=== PATIENT | male | born 1990 | race Caucasian/White ===

== ENCOUNTER 2017-01-03 02:18 | Emergency (ER) | payer SELFPAY ==
[~2017-01-03] VITALS: Ht 170.2 cm; Wt 90.7 kg
[2017-01-03 02:50] VITALS: BP 135/66
[2017-01-03] MEDS ORDERED: IBUPROFEN 800 MG TABLET. PO ONE (03:15)
--- NOTE | 2017-01-03 03:18 | PHYS DOC ---
Adult General Chief Complaint Chief Complaint: ANKLE PROBLEM HPI HPI 26-year-old male with no prior injury to the right ankle now presents the emergency department complaining of persistent pain and swelling after a traumatic inversion injury earlier tonight. 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 It's been swollen and sore since. Range of motion limited by pain. Patient is able to bear weight however it's uncomfortable. Denies any injury or hip pain. No other complaints. no bone or bleeding problems no history of coagulopathy Review of Systems Review of Systems Constitutional: Denies fever or chills [] Eyes: Denies change in visual acuity, redness, or eye pain [] HENT: Denies nasal congestion or sore throat [] Respiratory: Denies cough or shortness of breath [] Cardiovascular: No additional information not addressed in HPI [] GI: Denies abdominal pain, nausea, vomiting, bloody stools or diarrhea [] : Denies dysuria or hematuria [] Musculoskeletal: Denies back pain or joint pain [] Integument: Denies rash or skin lesions [] Neurologic: Denies headache, focal weakness or sensory changes [] Endocrine: Denies polyuria or polydipsia [] Current Medications Current Medications Current Medications Medications (Trade) Dose Ordered Sig/Marisela Start Time Stop Time Status Last Admin Dose Admin Acetaminophen/ Hydrocodone Bitart (Lortab 5/325) 1 tab 1X ONCE 01/03/17 03:30 01/03/17 03:31 DC Ibuprofen (Motrin) 800 mg 1X ONCE 01/03/17 03:15 01/03/17 03:16 UNV Allergies Allergies Allergies Coded Allergies Type Severity Reaction Last Updated Verified NSAIDS (Non-Steroidal Anti-Inflamma Allergy Unknown "skin blotches and i swell up" 01/03/17 Yes Physical Exam Physical Exam Well-appearing male no acute distress soft tissue swelling right ankle with tenderness leg and knee nontender. Nontender hip with soft compartments. Normal distal foot with normal cap refill and no bony tenderness. Constitutional: Well developed, well nourished, no acute distress, non-toxic appearance. [] HENT: Normocephalic, atraumatic, bilateral external ears normal, oropharynx moist, no oral exudates, nose normal. [] Eyes: PERRLA, EOMI, conjunctiva normal, no discharge. [] Neck: Normal range of motion, no tenderness, supple, no stridor. [] Cardiovascular:Heart rate regular rhythm, no murmur [] Lungs & Thorax: Bilateral breath sounds clear to auscultation [] Abdomen: Bowel sounds normal, soft, no tenderness, no masses, no pulsatile masses. [] Skin: Warm, dry, no erythema, no rash. [] Back: No tenderness, no CVA tenderness. [] Extremities: No tenderness, no cyanosis, no clubbing, ROM intact, no edema. [] Neurologic: Alert and oriented X 3, normal motor function, normal sensory function, no focal deficits noted. [] Psychologic: Affect normal, judgement normal, mood normal. [] EKG EKG [] Radiology/Procedures Radiology/Procedures [] Course & Med Decision Making Course & Med Decision Making Pertinent Labs and Imaging studies reviewed. (See chart for details) Signs and symptoms consistent with right ankle sprain versus fracture. Analgesia given. X-rays pending. Ankle elevated with ice pack in place. [] Dragon Disclaimer Dragon Disclaimer This electronic medical record was generated, in whole or in part, using a voice recognition dictation system. Departure Departure Impression: Primary Impression: Right ankle sprain Additional Impression: Right ankle pain Disposition: HOME, SELF-CARE Condition: IMPROVED Referrals: NO PCP (PCP) Patient Instructions: Ankle Sprain Additional Instructions: You have an ankle sprain. Until follow-up with your doctor in several days for reevaluation and referral to orthopedics as needed. Rest ice elevate whenever possible. Take Tylenol or Mohawk as needed for pain. Do not bear any weight on the ankle it causes any pain. Be aware that it is possible that he could have a nondisplaced fracture that is not visible on x-ray and that the treatment ( splint, nonweightbearing status, orthopedic follow-up )would be the same even if this existed. Keep the splint on until seen by your doctor or orthopedics and cleared to discontinue its use. Problem Qualifiers BEATRIZ ARENAS MD Jan 03, 2017 03:18
[2017-01-03] MEDS ORDERED: HYDROcodone/APAP 5/325MG 1 TAB TABLET PO ONE (03:30)
--- NOTE | 2017-01-03 07:15 | RAD ---
Three-view right ankle study Indications: Injury with swelling and pain Findings: Lateral soft tissue swelling is seen. There is an avulsion fracture of the lateral process of the talus. The mortise ankle joint is intact. No osteolytic process is seen. IMPRESSION: Avulsion fracture of the lateral process of the talus.
== END 2017-01-03 05:40 | disposition home or self-care (01) ==
LOC: ER 02:18
DX: S93.401A Sprain of unspecified ligament of right ankle, initial encounter (principal); Z88.6 Allergy status to analgesic agent; X58.XXXA Exposure to other specified factors, initial encounter; Y93.89 Activity, other specified; Y92.89 Other specified places as the place of occurrence of the external cause; Y99.8 Other external cause status
CPT/HCPCS: 29515; 73610; 99284-25